=== PATIENT | male | born 2000 | race African-American/Black ===

== ENCOUNTER 2020-12-26 18:54 | Emergency (ER) | payer OTHER, SELFPAY ==
--- NOTE | ~2020-12-26 | CT_ITS ---
EXAMINATION: CT abdomen pelvis w con EXAM DATE: 12/26/2020 22:49 INDICATION: Low abdominal pain. TECHNIQUE: Spiral CT of the abdomen and pelvis was performed following intravenous injection of 100 m L Omnipaque 350. Axial, coronal and sagittal images of the abdomen and pelvis were reviewed. The do se-length product (DLP) for this examination was 1559.02 mGy-cm. The exposure was tailored according to patient size (auto mA exposure control), and iterative reconstruction (ASIR) was used as addition al dose reduction technique. There is no prior study for comparison. FINDINGS: Mildly enlarged mesenteric lymph nodes, largest region identified measuring 1.0 x 1.7 cm. M ildly hazy mesenteric fat stranding surrounding these (raquel mesentery appearance), a nonspecific fin ding but most commonly caused by infiltration with inflammatory cells, mesenteric panniculitis. Unce rtain whether this is acute or chronic finding. No enlarged retroperitoneal lymph nodes. The liver, spleen, adrenal glands and pancreas are unremarkable. Gallbladder is unremarkable. No bi liary obstruction. Portal and splenic veins are patent. Kidneys enhance symmetrically. There is no hydronephrosis. The prostate is unremarkable. The bladder is unremarkable. The appendix is normal. The stomach and small bowel are unremarkable. There is expected amount of c olonic stool. No free intraperitoneal gas. The heart is normal in size. There are no pericardial or pleural effusions. The lung bases are unremarkable. The bones are unremarkable. 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 U ncertain whether or not this is acute causing patient's current symptoms, or chronic. Consider 3 sandra h follow-up CT to exclude lymphoma. Reviewed, dictated and finalized at location A. IMPRESSION: Mild mesenteric lymphadenopathy with raquel mesentery, probably mese nteric panniculitis. Uncertain whether or not this is acute causing patient's c urrent symptoms, or chronic. Consider 3 month follow-up CT to exclude lymphoma.
[2020-12-26 18:57] VITALS: BP 131/94; PULSE 119; RESP 18; TEMP 37; O2SAT 99
[2020-12-26 19:09] LABS: Basophils Percent Auto 0.2 % (0.2-1.2); Hematocrit 48.2 % (42.0-52.0); Hemoglobin 16.3 g/dL (14.0-18.0); Immature Granulocyte Absolute 0.02 K/mm3 (0.00-0.031); Immature Granulocyte Percent A 0.2 % (0-0.5); Lymphocytes Percent Auto 3.1 % (18.3-44.2); Mean Corpuscular HGB Conc 33.8 g/dl (32-36); Mean Corpuscular Volume 82.8 fl (80-100); Mean Platelet Volume 9.8 fl (7.4-10.4); Monocytes Absolute Auto 0.5 K/mm3 (0.1-0.6); Monocytes Percent Auto 3.9 % (2.6-8.5); Neutrophils Percent Auto 92.6 % (45.5-73.1); Platelet Count Result 240 k/mm3 (150-375); Red Blood Count 5.82 M/mm3 (4.6-6.20); Red Cell Distribution Width 12.8 % (11.5-14.5)
[2020-12-26 19:18] LABS: Alanine Aminotransferase 27 U/L (4-50); Albumin Level 4.9 g/dL (3.5-5.1); Alkaline Phosphatase 100 U/L (38-126); Anion Gap 13 mmol/L (8-16); Aspartate Amino Transferase 27 U/L (17-59); Bilirubin,Total 0.8 mg/dL (0.2-1.3); Blood Urea Nitrogen 10 mg/dL (9-20); Calcium 9.8 mg/dL (8.4-10.2); Carbon Dioxide 24 mmol/L (22-30); Chloride 106 mmol/L (98-107); Estimated CRCL calculation 170 ml/min; Estimated Glomerular Filt Rate > 60; Glucose 151 mg/dL (65-110); Lipase 34 U/L (23-300); Potassium 3.7 mmol/L (3.4-5.0); Sodium 143 mmol/L (137-145)
[2020-12-26 19:22] LABS: Add Urine Microscopic? NO; Appearance Urine Clear (Clear); Bilirubin Urine Negative (Negative); Blood Urine Negative (Negative); Color Urine Yellow (Yellow); Glucose Urine UA Negative (Negative); Ketones Urine Negative (Negative); Leukocyte Esterase Ur Negative LEU/UL (Negative); Nitrate Urine Negative (Negative); Protein Urine Negative (Negative); Specific Grav Ur 1.028 (1.001-1.035); Urobilinogen Urine Negative mg/dL (<2.0)
[2020-12-26 21:31] VITALS: BP 126/75; PULSE 115; RESP 21; O2SAT 100
[2020-12-26] MEDS: SODIUM CHLORIDE 0.9% IV 1,000 ML 999 ML IV CONT (21:58)
[2020-12-26] MEDS: ONDANSETRON INJ 4 MG/2 ML VIAL IV PUSH (21:58)
[2020-12-26] MEDS: DICYCLOMINE HCL INJ 20 MG/2 ML VIAL IM (22:01)
--- NOTE | 2020-12-26 23:48 | ED.GENADULT ---
HPI - General Adult General Chief complaint: Nausea/Vomiting/Diarrhea Stated complaint: vomiting, diarrhea Time Seen by Provider: 12/26/20 21:36 History of Present Illness HPI narrative: Patient 20-year-old gentleman who presents the emergency department with chief complaint of abdominal pain nausea vomiting and diarrhea. Patient reports that he started having diarrhea this morning and has had several episodes of. The patient reports he had an episode of diarrhea in the emergency department upon arrival here and subsequently has been having cramping in his abdomen. The patient reports that he has not had a fever with this reports that he thinks he may have food poisoning from something he ate. Patient reports that he has not been able to tolerate p.o. intake since this happened. Related Data Allergies Allergy/AdvReac Type Severity Reaction Status Date / Time No Known Allergies Allergy Verified 12/26/20 18:59 Review of Systems Review of Systems: Narrative: A 10 system review of systems was completed on the patient and is negative except for what is stated in the HPI. Nursing and ancillary documentation was reviewed. Exam Narrative: Exam Narrative: GENERAL: Well-appearing, well-nourished, and in no acute distress. HEAD: Normocephalic, atraumatic. EYES: PERRLA and EOMI. ENT: Nares clear, no rhinorrhea or epistaxis. Mucous membranes moist. NECK: Supple. CHEST: Clear to auscultation. No respiratory distress. HEART: Regular rate and rhythm. No murmur heard. Normal peripheral pulses. ABDOMEN: Soft, tender to palpation in bilateral lower quadrants, nondistended, normal active bowel sounds. EXTREMITIES: Normal range of motion. No edema. SKIN: Warm, dry, no rash. NEURO: No focal deficits. Alert and oriented x3. PSYCH: Normal mood and affect. Course Course Emergency Course: CT scan showed evidence of mesenteric adenitis. Patient is feeling much better at this time and would like to be treated with outpatient therapy. Vital Signs Vital signs: Vital Signs Temperature 37.0 C 12/26/20 18:57 Pulse Rate 119 H 12/26/20 18:57 Respiratory Rate 18 12/26/20 18:57 Blood Pressure 131/94 H 12/26/20 18:57 Pulse Oximetry 99 12/26/20 18:57 Temperature 37.0 C 12/26/20 18:57 Pulse Rate 115 H 12/26/20 21:31 Respiratory Rate 21 H 12/26/20 21:31 Blood Pressure 126/75 12/26/20 21:31 Pulse Oximetry 100 12/26/20 21:31 Medical Decision Making Vital Signs Vital Signs: Vital Signs Temperature 37.0 C 12/26/20 18:57 Pulse Rate 119 H 12/26/20 18:57 Respiratory Rate 18 12/26/20 18:57 Blood Pressure 131/94 H 12/26/20 18:57 Pulse Oximetry 99 12/26/20 18:57 Temperature 37.0 C 12/26/20 18:57 Pulse Rate 115 H 12/26/20 21:31 Respiratory Rate 21 H 12/26/20 21:31 Blood Pressure 126/75 12/26/20 21:31 Pulse Oximetry 100 12/26/20 21:31 Lab Data Result diagrams: 12/26/20 19:01 12/26/20 19:01 Labs: Lab Results 12/26/20 12/26/20 12/26/20 Range/Units 19:01 19:01 19:12 WBC 13.0 H (4.5-10.0) K/mm3 RBC 5.82 (4.6-6.20) M/mm3 Hgb 16.3 (14.0-18.0) g/dL Hct 48.2 (42.0-52.0) % MCV 82.8 (80-100) fl MCH 28.0 (26-34) pg MCHC 33.8 (32-36) g/dl RDW 12.8 (11.5-14.5) % Plt Count 240 (150-375) k/mm3 MPV 9.8 (7.4-10.4) fl Immature Gran % (Auto) 0.2 (0-0.5) % Neut % (Auto) 92.6 H (45.5-73.1) % Lymph % (Auto) 3.1 L (18.3-44.2) % Crisp % (Auto) 3.9 (2.6-8.5) % Eos % (Auto) 0.0 (0-4.4) % Baso % (Auto) 0.2 (0.2-1.2) % Lymph # (Auto) 0.40 L (0.9-3.2) K/mm3 Crisp # (Auto) 0.5 (0.1-0.6) K/mm3 Eos # (Auto) 0.0 (0-0.3) K/mm3 Baso # (Auto) 0.0 (0.0-0.1) K/mm3 Abs Immat Gran (auto) 0.02 (0.00-0.031) K/mm3 Absolute Neuts (auto) 12.0 H (1.3-6.7) K/mm3 Absolute Nucleated RBC 0.0 (0.0-0.012) K/mm3 Nucleated RBC % 0.0 (0.0-0.2) % Sodium 143 (137-145) mmol/L P
[2020-12-27 00:17] VITALS: BP 114/64; PULSE 104; RESP 14; O2SAT 98
== END 2020-12-27 00:17 | disposition home or self-care (01) ==
PROVIDERS: Emergency Medicine; Emergency Provider Emergency Medicine
DX: K52.9 Noninfective gastroenteritis and colitis, unspecified (principal); I88.0 Nonspecific mesenteric lymphadenitis
CPT/HCPCS: 36415; 74177; 80053; 81003; 83690; 85025; 96361; 96372; 96374; 99284; J0500; J2405; J7030; Q9967